=== PATIENT | female | born 1980 | race Caucasian/White ===

== ENCOUNTER 2020-03-28 10:14 | Emergency (ER) | payer OTHER ==
[2020-03-28] MEDS ORDERED: MOBIC15 MG PO (15:56)
[2020-03-28] MEDS ORDERED: CYCLOBENZAPRINE5 MG PO (15:56)
== END 2020-03-28 16:08 | disposition home or self-care (01) ==
LOC: ER1 10:14
DX: S09.90XA Unspecified injury of head, initial encounter (principal); S16.1XXA Strain of muscle, fascia and tendon at neck level, initial encounter; S39.012A Strain of muscle, fascia and tendon of lower back, initial encounter; S70.02XA Contusion of left hip, initial encounter; S70.01XA Contusion of right hip, initial encounter; K80.80 Other cholelithiasis without obstruction; F17.200 Nicotine dependence, unspecified, uncomplicated; Z88.1 Allergy status to other antibiotic agents; V48.5XXA Car driver injured in noncollision transport accident in traffic accident, initial encounter; Y92.410 Unspecified street and highway as the place of occurrence of the external cause
CPT/HCPCS: 70450; 71260; 72100; 72125; 72170; 99284; Q9967